=== PATIENT | female | born 1995 | race Caucasian/White ===

== ENCOUNTER 2025-01-28 21:12 | Emergency (ER) | payer MEDICAID ==
[~2025-01-28] VITALS: Ht 177.8 cm; Wt 68.2 kg
[~2025-01-28 21:12] MED LIST: HYDR-4383 PO
[2025-01-28 21:28] VITALS: BP 122/79; PULSE 80; RESP 18; O2SAT 99
[2025-01-28] MEDS: ondansetron 4mg rapidly disintigrating tab PO ONE (22:19)
[2025-01-28] MEDS: LORazepam 1 MG tablet PO ONE ×2 (22:20→23:13)
[2025-01-28 23:09] VITALS: TEMP 97.4
== END 2025-01-28 23:14 | disposition home or self-care (01) ==
LOC: ER 21:13
DX: F41.0 Panic disorder [episodic paroxysmal anxiety] (principal); F45.8 Other somatoform disorders; F31.9 Bipolar disorder, unspecified; Z88.2 Allergy status to sulfonamides
CPT/HCPCS: 99284